=== PATIENT | male | born 1995 | race Two or more races ===

== ENCOUNTER 2021-02-25 15:50 | Emergency (ER) | payer SELFPAY ==
--- NOTE | 2021-02-25 17:53 | PC.NURSE ---
CALLED PT NO RESPONSE.
== END 2021-02-25 17:41 | disposition left against medical advice (07) ==
PROVIDERS: Emergency Provider Emergency Medicine; PCP Nurse Practitioner Family
DX: Z77.21 Contact with and (suspected) exposure to potentially hazardous body fluids (principal)